=== PATIENT | female | born 1965 | race Caucasian/White ===

== ENCOUNTER 2020-08-31 11:18 | Emergency (ER) | payer MEDICAID, SELFPAY ==
[2020-08-31 11:37] VITALS: BP 123/77; PULSE 110; RESP 18; TEMP 36.5; O2SAT 100; BMI 28.5
--- NOTE | 2020-08-31 11:37 | XR_ITS ---
EXAMINATION: XR CHEST CLINICAL INFORMATION: Chest wall pain COMPARISON: Previous chest x-ray and chest CTA January 2020 TECHNIQUE: Frontal view of the chest was obtained. FINDINGS: The cardiac and mediastinal contours are normal. The lungs are clear. There is no pleural effusion or pneumothorax. There are degenerative changes of the spine and curvature of the midthoracic spine to the right. XR/XR chest 1V IMPRESSION: No evidence for acute disease in the chest.
[2020-08-31 11:41] VITALS: BP 123/77; PULSE 110; RESP 18; TEMP 36.5; O2SAT 100
--- NOTE | 2020-08-31 12:11 | ECG_ITS ---
Test Reason : SOB Blood Pressure : / mmHG Vent. Rate : 090 BPM Atrial Rate : 090 BPM P-R Int : 154 ms QRS Dur : 076 ms QT Int : 352 ms P-R-T Axes : 067 081 070 degrees QTc Int : 430 ms Normal sinus rhythm Possible Left atrial enlargement Borderline ECG When compared with ECG of 12-JAN-2020 23:38, No significant change was found Referred By: Keyana Montgomery Electronically Signed By:BISI DIAZ MD
--- NOTE | 2020-08-31 12:16 | ED_ITS ---
HPI - URI/Sore Throat General Chief Complaint: Upper Respiratory Symptoms Stated Complaint: covid +, chest wall pain Time Seen by Provider: 08/31/20 11:36 Source: patient Mode of arrival: ambulatory History of Present Illness HPI Narrative: 55-year-old female with a past medical history of asthma, GERD, HTN, COVID-19 positive, presenting to ED complaining of bilateral upper back pain x2 days. Also reports cough, mild SOB, and chest pressure. Admits back pain worse with movement, and coughing. Denies fever, chills, sick contacts, dysuria/hematuria. Admits recently travel to [place] in July. MD elicited complaint: cough Onset (ago): day(s) Related Data Allergies Allergy/AdvReac Type Severity Reaction Status Date / Time amoxicillin [AMOXICILLIN] Allergy Unknown RASH Verified 07/15/20 13:42 clarithromycin Allergy Unknown RASH Verified 07/15/20 13:42 [CLARITHROMYCIN] Review of Systems Review of Systems: Constitutional: No Weight loss, No Fever, No Chills ENT/Mouth: No Ear Pain, + Nasal Congestion, No Sinus Pain, No Hoarseness, No sore throat Cardiovascular: + Chest pressure, + SOB Respiratory: + Cough, No Sputum, No Wheezing Gastrointestinal: No Nausea, No Vomiting, No Diarrhea, No Constipation, No Abdominal pain : No dysuria, No hematuria Musculoskeletal: No joint pain, + Myalgias, No Joint Swelling Skin: No Skin Lesions, No rash Yes all other systems are reviewed and are negative PMFSH Past Medical History Attestation statement: The following information was validated with the patient. Medical History (Updated 07/15/20 @ 13:41 by Tammi Regan RN) Adrenal tumor Asthma Carpal tunnel syndrome, left GERD (gastroesophageal reflux disease) HTN (hypertension) Migraine Normal colonoscopy Surgical History (Updated 07/15/20 @ 13:41 by Tammi Regan RN) History of esophagogastroduodenoscopy (EGD) History of fundoplication History of hernia repair Status post right breast lumpectomy Tubal ligation status Social History Social History Alcohol intake: never Smoking Status: Current every day smoker Packs Per Day: 0.5 Cigarettes Per Day: 10.0 Years Smoked: 30 Use of substances other than those prescribed or required for medical reasons: No Advance Directives: No Advance Directives Information Provided: Yes Physical Exam Vital Signs: Vital Signs: Last Vital Signs Temp 97.7 F 08/31/20 11:41 Pulse 110 H 08/31/20 11:41 Resp 18 08/31/20 11:41 BP 123/77 08/31/20 11:41 Pulse Ox 100 08/31/20 11:41 Body Mass Index 28.5 Const: General: cooperative and healthy appearing Orientation/consciousness: patient oriented x3 Limitations: no limitations HENMT: Head: Yes normal to inspection Ears: hearing grossly normal bilaterally General nose exam: Normal external nose present Face and sinus: Yes normal facial exam Eyes: General: appearance normal, both eyes and all related structures EOM: EOMs intact bilaterally Neck: Neck: Yes normal visual inspection Chest: Other: +ttp bilateral posterior ribs, nonlocalized, reproducing subjective complaint Chest palpation & inspection: normal inspection of the chest and no crepitus Resp: Effort & Inspection: normal respiratory effort Auscultation: clear to auscultation bilaterally and no wheezes Cardio: Rate: tachycardic Skin: Rashes: no rashes Wounds: no wounds Neuro: General: patient oriented x3 Gait exam (Neuro): Normal gait present Extrem: General: Yes normal to inspection Course Course Course Narrative: -mild leukocytosis 12.1, D-dimer negative, labs otherwise unremarkable including troponin -CXR unremarkable MDM - URI/Sore Throat MDM Narrative Medical decision making narrative: 55-year-old female with a past medical history of asthma, GERD, HTN, COVID-19+, presenting to ED complaining of bilateral upper back pain x2 days. Also reports cough, mild SOB, and chest pressure. On exam tachycardic, NAD, lungs CTA. Concern for viral syndrom e/COVID-19 vs pneumonia vs PE vs costochondritis/MSK pain vs ACS (although lower on differential). Low concern for severe sepsis as suspected viral etiology Plan: EKG, labs, CXR, Reassess Lab Data Result diagrams: 08/31/20 12:58 08/31/20 12:58 Labs: Lab Results 08/31/20 08/31/20 08/31/20 Range/Units 12:58 12:58 12:58 WBC 12.1 H (4.8-10.8) X10*3/uL RBC 5.14 (4.20-5.50) X10*6/uL Hgb 16.0 (12.0-16.0) g/dl Hct 49.5 H (37-47) % MCV 96.3 (80-98) fL MCH 31.1 (27.0-33.0) pg MCHC 32.3 (31.0-35.0) g/dl RDW 13.7 (11.0-16.0) % Plt Count 371 (160-400) X10*3/uL MPV 8.9 L (9.4-12.3) fL Immature Gran % (Auto) 0.2 (0.0-0.4) % Neut % (Auto) 66.5 (45-73) % Lymph % (Auto) 24.0 (20-40) % [place] % (Auto) 8.1 (2-11) % Eos % (Auto) 0.7 (0-4) % Baso % (Auto) 0.5 (0-2) % Lymph # (Auto) 2.9 (1.2-4.9) X10*3/uL [place] # (Auto) 1.0 (0.1-1.2) X10*3/uL Eos # (Auto) 0.1 (0.0-0.4) X10*3/uL Baso # (Auto) 0.1 (0.0-0.2) X10*3/uL Abs Immat Gran (auto) 0.03 (0.00-0.03) X10*3/uL Absolute Neuts (auto) 8.0 (2.0-8.3) X10*3/uL Absolute Nucleated RBC 0.000 (0.0-0.012) X10*3/uL Nucleated RBC % (auto) 0.0 (0.0-0.2) /100WBC PT 11.2 (10.8-13.0) SEC INR 0.9 (0.9-1.1) APTT 37.1 (24.1-38.0) SEC D-Dimer < 200 NG/ML Sodium 140 (135-145) mmol/L Potassium 4.8 (3.3-5.1) mmol/l Chloride 101 (96-108) mmol/L Carbon Dioxide 30 H (22-29) mmol/L Anion Gap 14 (12-20) BUN 10 (9-16) mg/dL Creatinine 0.66 (0.5-1.4) mg/dL Estim Creat Clear Calc 108.9 Estimated GFR > 60 Random Glucose 79 (60-115) mg/dL Calcium 9.5 (8.4-10.2) mg/dL Troponin I High Sens (<3.5-17.0) ng/L B-Natriuretic Peptide (<100) pg/mL 08/31/20 08/31/20 Range/Units 12:58 12:58 WBC (4.8-10.8) X10*3/uL RBC (4.20-5.50) X10*6/uL Hgb (12.0-16.0) g/dl Hct (37-47) % MCV (80-98) fL MCH (27.0-33.0) pg MCHC (31.0-35.0) g/dl RDW (11.0-16.0) % Plt Count (160-400) X10*3/uL MPV (9.4-12.3) fL Immature Gran % (Auto) (0.0-0.4) % Neut % (Auto) (45-73) % Lymph % (Auto) (20-40) % [place] % (Auto) (2-11) % Eos % (Auto) (0-4) % Baso % (Auto) (0-2) % Lymph # (Auto) (1.2-4.9) X10*3/uL [place] # (Auto) (0.1-1.2) X10*3/uL Eos # (Auto) (0.0-0.4) X10*3/uL Baso # (Auto) (0.0-0.2) X10*3/uL Abs Immat Gran (auto) (0.00-0.03) X10*3/uL Absolute Neuts (auto) (2.0-8.3) X10*3/uL Absolute Nucleated RBC (0.0-0.012) X10*3/uL Nucleated RBC % (auto) (0.0-0.2) /100WBC PT (10.8-13.0) SEC INR (0.9-1.1) APTT (24.1-38.0) SEC D-Dimer NG/ML Sodium (135-145) mmol/L Potassium (3.3-5.1) mmol/l Chloride (96-108) mmol/L Carbon Dioxide (22-29) mmol/L Anion Gap (12-20) BUN (9-16) mg/dL Creatinine (0.5-1.4) mg/dL Estim Creat Clear Calc Estimated GFR Random Glucose (60-115) mg/dL Calcium (8.4-10.2) mg/dL Troponin I High Sens < 3.5 (<3.5-17.0) ng/L B-Natriuretic Peptide < 10 (<100) pg/mL
[2020-08-31 13:04] LABS: MANUAL DIFF FLAG NO
[2020-08-31 13:07] LABS: Basophils Absolute Auto 0.1 X10*3/uL (0.0-0.2); Basophils Percent Auto 0.5 % (0-2); Eosinophils Absolute Auto 0.1 X10*3/uL (0.0-0.4); Eosinophils Percent Auto 0.7 % (0-4); Hematocrit 49.5 % (37-47); Imm Gran Abs Auto 0.03 X10*3/uL (0.00-0.03); Imm Gran Pct Auto 0.2 % (0.0-0.4); Lymphocytes Absolute Auto 2.9 X10*3/uL (1.2-4.9); Mean Corpuscular HGB Conc 32.3 g/dl (31.0-35.0); Mean Corpuscular Hemoglobin 31.1 pg (27.0-33.0); Mean Corpuscular Volume 96.3 fL (80-98); Mean Platelet Volume 8.9 fL (9.4-12.3); Monocytes Percent Auto 8.1 % (2-11); Neutrophils Percent Auto 66.5 % (45-73); Platelet Count 371 X10*3/uL (160-400); Red Blood Count 5.14 X10*6/uL (4.20-5.50); Red Cell Distribution Width 13.7 % (11.0-16.0); White Blood Count 12.1 X10*3/uL (4.8-10.8)
[2020-08-31 13:12] LABS: INTERNATIONAL NORM RATIO 0.9 (0.9-1.1); Prothrombin Time 11.2 SEC (10.8-13.0)
[2020-08-31 13:15] LABS: Partial Thromboplastin Time 37.1 SEC (24.1-38.0)
[2020-08-31 13:25] LABS: D Dimer < 200 NG/ML
[2020-08-31 13:40] LABS: Anion Gap 14 (12-20); Blood Urea Nitrogen 10 mg/dL (9-16); Calcium 9.5 mg/dL (8.4-10.2); Carbon Dioxide 30 mmol/L (22-29); Chloride 101 mmol/L (96-108); Creatinine Clr Calc Pharmacy 108.9; Estimated Glomerular Filt Rate > 60; Glucose Random 79 mg/dL (60-115); Potassium 4.8 mmol/l (3.3-5.1); Sodium 140 mmol/L (135-145)
[2020-08-31 13:45] LABS: B Type Natriuretic Peptide < 10 pg/mL (<100); Troponin-I High Sensitivity < 3.5 ng/L (<3.5-17.0)
[2020-08-31 14:00] VITALS: BP 124/86; RESP 16; O2SAT 98
== END 2020-08-31 14:57 | disposition home or self-care (01) ==
PROVIDERS: Physician Assistant; Emergency Provider Emergency Medicine; PCP Internal Medicine
DX: B34.9 Viral infection, unspecified (principal); R05 Cough; M54.5 Low back pain; F17.200 Nicotine dependence, unspecified, uncomplicated; Z71.6 Tobacco abuse counseling; Z20.828 Contact with and (suspected) exposure to other viral communicable diseases
CPT/HCPCS: 36415; 71045; 80048; 83880; 84484; 85025; 85379; 85610; 85730; 93005; 99283; 99284

== ENCOUNTER 2020-10-26 08:08 | Emergency (ER) | payer MEDICAID, SELFPAY ==
[2020-10-26 08:22] VITALS: BP 148/89; PULSE 67; RESP 16; TEMP 36.2; O2SAT 100; BMI 29.3
--- NOTE | 2020-10-26 08:22 | ED_ITS ---
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 Mode of arrival: ambulatory Limitations: no limitations History of Present Illness HPI Narrative: 55 yo female on losartan 50mg compliant notes 3 days of headaches and recorded BPs of 170/74 no other complaints no numbness or weakness - no AC therapy, states she took tylenol without relief, this feels like a typical headache for her, on arrival to ED 148/89 and she states her headache is only mild at this time MD elicited complaint: headache Pertinent past history: migraines and hypertension Onset (ago): day(s) (3) Onset description: gradually Location: generalized Severity: similar to previous episodes Quality & Timing: aching, constant, progressively worsening and similar to previous headaches Exacerbating factors: none Relieving factors: nothing Context: occurred at rest Associated symptoms: none Treatments prior to arrival: acetaminophen Related Data Previous Rx's Medication Instructions Recorded albuterol sulfate 2 puff INHALATION Q4-6H PRN #6.7 g 08/31/20 benzonatate [Tessalon Perles] 100 mg PO BID PRN #10 cap 08/31/20 guaifenesin 200 mg PO Q4H PRN #10 tab 08/31/20 konrrcvnnk-ekyjgwnezrtjm-zoqw 1 tab PO Q6H PRN #20 tab 10/26/20 cyclobenzaprine 10 mg PO TID PRN #14 tab 10/26/20 Allergies Allergy/AdvReac Type Severity Reaction Status Date / Time amoxicillin [AMOXICILLIN] Allergy Unknown RASH Verified 07/15/20 13:42 clarithromycin Allergy Unknown RASH Verified 07/15/20 13:42 [CLARITHROMYCIN] Review of Systems Review of Systems: Constitutional : No Fever, No Chills, No Fatigue ENT/Mouth : No sore throat, No Rhinorrhea Eyes: No Eye Pain, No Swelling, No Redness Cardiovascular : No Chest Pain, No SOB, No Dyspnea on Exertion Respiratory : No Cough, No Sputum Gastrointestinal : No Nausea, No Vomiting, No Diarrhea, No abdominal Pain Genitourinary : No Dysuria, No Urinary Frequency, No Hematuria, Musculoskeletal : No joint pain, No Myalgias, No Joint Swelling Skin : No Skin Lesions, No rash Neuro : No Weakness, No Numbness, No Dizziness, positive Headache Psych : No Anxiety/Panic, No Depression Heme/Lymph: No Bruising, No Bleeding,No Lymphadenopathy Endocrine : No Polyuria, No Polydipsia All other systems reviewed and are negative [facility] Past Medical History Attestation statement: The following information was validated with the patient. Medical History Adrenal tumor Asthma Carpal tunnel syndrome, left GERD (gastroesophageal reflux disease) HTN (hypertension) Migraine Normal colonoscopy Surgical History History of esophagogastroduodenoscopy (EGD) History of fundoplication History of hernia repair Status post right breast lumpectomy Tubal ligation status Social History Social History Alcohol intake: never Smoking Status: Current every day smoker Packs Per Day: 0.5 Cigarettes Per Day: 10.0 Years Smoked: 30 Advance Directives: No Advance Directives Information Provided: No Physical Exam Vital Signs: Appearance: Alert. Oriented X3. No acute distress. Eyes: Pupils equal, round and reactive to light. ENT: Pharynx normal. no sinus ttp Neck: Normal inspection. Neck supple. no meningeal signs CVS: Normal heart rate and rhythm. Pulses normal. Respiratory: No respiratory distress. Breath sounds normal. Abdomen: Soft and nontender. Skin: Skin warm and dry. Normal skin color. Normal skin turgor. Extremities: No lower extremity edema. No calf ttp Neuro: Oriented X 3. No motor deficit. No sensory deficit. 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 Discharge Plan Discharge Clinical Impression: Acute tension headache Patient Disposition: Home, Self-Care Instructions: Tension Headache (ED) Additional Instructions: return to ED for any worsening symptoms or concerns Prescriptions: New cyclobenzaprine 10 mg tablet 10 mg PO TID PRN (Reason: muscle spasm) Qty: 14 RF: 0 safkhrdfkb-jywkaapawajcl-yign 50-325-40 mg tablet 1 tab PO Q6H PRN (Reason: pain) Qty: 20 RF: 0 No Action benzonatate [Tessalon Perles] 100 mg capsule 100 mg PO BID PRN (Reason: cough) Qty: 10 RF: 0 guaifenesin 200 mg tablet 200 mg PO Q4H PRN (Reason: cough) Qty: 10 RF: 0 albuterol sulfate 90 mcg/actuation HFA aerosol inhaler 2 puff inhalation Q4-6H PRN (Reason: shortness of breath or wheezing) Qty: 6.7 RF: 0 Referrals: Verito Castillo MD [Primary Care Provider] - 2 days (if not better, if blood pressure remains elevated) Stand Alone Forms: Work/School Release Print Language: Romanian
[2020-10-26] MEDS: Butalb/Acetamin/Caff 50/325/40 TABLET 1 TAB PO (09:19)
[2020-10-26] MEDS: diazePAM 5 MG TABLET PO (09:20)
[2020-10-26 09:21] VITALS: BP 153/87; PULSE 87; RESP 16; O2SAT 100
== END 2020-10-26 09:24 | disposition home or self-care (01) ==
PROVIDERS: Emergency Provider Emergency Medicine; PCP Internal Medicine
DX: G44.209 Tension-type headache, unspecified, not intractable (principal); I10 Essential (primary) hypertension; Z79.899 Other long term (current) drug therapy; F17.200 Nicotine dependence, unspecified, uncomplicated; Z71.6 Tobacco abuse counseling
CPT/HCPCS: 99284

== ENCOUNTER 2021-02-28 10:00 | Outpatient (RCR) | payer MEDICAID, SELFPAY ==
--- NOTE | 2021-01-02 11:05 | MHC.PT.EP ---
[facility] [place] [facility] [place] Office [address] Elroy Weber [address] [phone] F: [phone] F: [phone] F: [phone] F: [phone] Physical Therapy Plan of Care Date of Evaluation: 01/02/21 Date of Surgery: N/A Diagnosis: primary osteoarthritis of left knee Assessment: pt presents to physical therapy with pain, decreased range of motion, decreased strength, impaired functional mobility, impaired postural awareness, and gait deviations. pt is a good candidate for skilled PT due to age, potential remediation of impairments, typical disease/condition progression and prognosis, comorbidities, and motivation. pt would benefit from tailored strengthening and stretching exercise program, functional training, gait training, postural re-training, neuromuscular re-education, modalities as needed for pain, equipment safety demonstration. Frequency and Duration: The patient will be seen 2x/wk for 5 wks Short Term Goals: pt will be I w/ HEP to promote self-management of condition. pt will improve B quad strength by 1 MMT grade to normalize gait pattern on even ground. Shelter Goals: pt will report a statistically significant improvement in self-reported outcome measure, LEFI, to promote return to PLOF. pt will ascend/descend 5 stairs w/ reciprocal gait pattern w/ LRAD to promote ease in accessing apartment. Treatment Plan: Modalities to reduce pain, spasms and effusion. Manual therapy to restore motion and function. Therapeutic exercise to improve strength and flexibility. Neuromuscular re-education for posture and balance. Therapeutic activities to return to functional activities of daily living. Electronically signed by: Margo Pickens PT, DPT Please sign and return to therapist. Thank you for your referral.
== END 2021-03-03 08:36 | disposition other institution (70) ==
LOC: HO.PT 10:00
PROVIDERS: PCP Internal Medicine; Visit Provider Internal Medicine
DX: M17.12 Unilateral primary osteoarthritis, left knee (principal)
CPT/HCPCS: 97110; 97112; 97161; 97530

== ENCOUNTER 2021-06-04 11:19 | Emergency (ER) | payer OTHER, MEDICAID, SELFPAY ==
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
[2021-06-04 11:25] VITALS: BP 145/86; PULSE 102; RESP 18; TEMP 36.9; O2SAT 100
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
[2021-06-04] MEDS: Acetaminophen 325 MG TABLET 1000 MG PO (12:58)
[2021-06-04 13:19] LABS: MANUAL DIFF FLAG NO
[2021-06-04 13:22] LABS: Basophils Absolute Auto 0.1 X10*3/uL (0.0-0.2); Basophils Percent Auto 0.5 % (0-2); Eosinophils Absolute Auto 0.1 X10*3/uL (0.0-0.4); Eosinophils Percent Auto 1.4 % (0-4); Hematocrit 43.1 % (37-47); Hemoglobin 13.8 g/dl (12.0-16.0); Imm Gran Abs Auto 0.02 X10*3/uL (0.00-0.03); Imm Gran Pct Auto 0.2 % (0.0-0.4); Lymphocytes Absolute Auto 2.3 X10*3/uL (1.2-4.9); Lymphocytes Percent Auto 24.1 % (20-40); Mean Corpuscular Hemoglobin 31.1 pg (27.0-33.0); Mean Corpuscular Volume 97.1 fL (80-98); Mean Platelet Volume 8.7 fL (9.4-12.3); Monocytes Absolute Auto 0.7 X10*3/uL (0.1-1.2); Monocytes Percent Auto 7.9 % (2-11); Neutrophils Absolute Auto 6.2 X10*3/uL (2.0-8.3); Neutrophils Percent Auto 65.9 % (45-73); Platelet Count 335 X10*3/uL (160-400); Red Blood Count 4.44 X10*6/uL (4.20-5.50); Red Cell Distribution Width 13.3 % (11.0-16.0); White Blood Count 9.4 X10*3/uL (4.8-10.8)
[2021-06-04 13:47] LABS: Anion Gap 10 (12-20); Blood Urea Nitrogen 8 mg/dL (9-16); Calcium 9.3 mg/dL (8.4-10.2); Carbon Dioxide 28 mmol/L (22-29); Chloride 106 mmol/L (96-108); Creatinine Clr Calc Pharmacy 119.4; Estimated Glomerular Filt Rate > 60; Glucose Random 126 mg/dL (60-115); Potassium 4.4 mmol/L (3.3-5.1); Sodium 140 mmol/L (135-145)
[2021-06-04 15:12] VITALS: BP 142/88; PULSE 79; RESP 18; TEMP 37.2; O2SAT 100
[2021-06-04] MEDS: oxyCODONE HCl Immed Release 5 MG TABLET PO (15:56)
--- NOTE | 2021-06-04 16:41 | PC.NURSE ---
This Rn was told by senior director of global commercial technology solutions that patient was stating she wanted to leave and senior director of global commercial technology solutions was able to remove patients IV before she exited the ED. Provider made aware, CT scan was never performed pt elopement.
== END 2021-06-04 16:43 | disposition left against medical advice (07) ==
PROVIDERS: Physician Assistant; Emergency Provider Emergency Medicine; PCP Internal Medicine
DX: S39.91XA Unspecified injury of abdomen, initial encounter (principal); R10.9 Unspecified abdominal pain; M25.512 Pain in left shoulder; V43.52XA Car driver injured in collision with other type car in traffic accident, initial encounter; Y93.9 Activity, unspecified; Y92.410 Unspecified street and highway as the place of occurrence of the external cause; Y99.9 Unspecified external cause status; Z79.899 Other long term (current) drug therapy; F17.210 Nicotine dependence, cigarettes, uncomplicated; Z71.6 Tobacco abuse counseling
CPT/HCPCS: 36415; 73030; 80048; 85025; 99284

== ENCOUNTER → 2021-07-26 10:47 | Outpatient (BNVA) | payer MEDICAID, SELFPAY | PROVIDERS: PCP Internal Medicine; Visit Provider Nurse Practitioner Family | DX: M54.16 Radiculopathy, lumbar region (principal); M79.18 Myalgia, other site | CPT/HCPCS: 99212 ==

== ENCOUNTER 2021-08-18 15:24 | Outpatient (REF) | payer MEDICAID, SELFPAY ==
--- NOTE | ~2021-08-18 | XR_ITS ---
EXAMINATION: XR LUMBOSACRAL SPINE WITH OBLIQUES CLINICAL INFORMATION: Low back pain. COMPARISON: None TECHNIQUE: AP, both oblique, and lateral views of the lumbar spine. Lateral view of the lumbosacral junction. FINDINGS: No evidence of acute fractures or malalignment. There is moderate degenerative disease at L4-L5 and L5-S1 with disc space narrowing and bilateral facet arthropathy leading to some degree of neural foraminal encroachment and central canal narrowing. Mild degenerative changes seen in the sacroiliac joints and hips. Nonobstructive bowel gas pattern. Pelvic phleboliths. XR/XR lumbar spine 4V min IMPRESSION: No acute fractures or malalignment. Moderate degenerative changes in the lower lumbar spine which could be further assessed with an MR of the lumbar spine as clinically indicated to evaluate for nerve root impingement and disc disease.
--- NOTE | ~2021-08-18 | XR_ITS ---
EXAMINATION: XR RIBS, RIGHT CLINICAL INFORMATION: Fall. COMPARISON: Radiograph dated from 08/31/2020. TECHNIQUE: 3 views of the right ribs were obtained. FINDINGS: Normal appearance of the cardiomediastinal silhouette. Clear lungs. No pleural effusion or pneumothorax. No evidence of acutely displaced rib fractures. XR/XR ribs RT min 3V w CXR1V IMPRESSION: No acute cardiopulmonary findings. No acutely displaced rib fractures.
== END 2021-08-18 15:25 | disposition home or self-care (01) ==
LOC: HO.XRAY 15:24
PROVIDERS: Absent Provider Internal Medicine; PCP Internal Medicine; Visit Provider Emergency Medicine
DX: M54.50 Low back pain, unspecified (principal); S30.0XXA Contusion of lower back and pelvis, initial encounter; W19.XXXA Unspecified fall, initial encounter; Y93.9 Activity, unspecified; Y92.9 Unspecified place or not applicable; Y99.9 Unspecified external cause status
CPT/HCPCS: 71101; 72110

== ENCOUNTER 2021-08-30 08:55 | Outpatient (REF) | payer MEDICAID, SELFPAY ==
--- NOTE | ~2021-08-30 | MR_ITS ---
EXAMINATION: MR LUMBAR SPINE WITHOUT CONTRAST CLINICAL INFORMATION: 56-year-old with complaints of chronic low back and bilateral leg pain. Radiculopathy, lumbar region. COMPARISON: 08/18/2021 x-rays TECHNIQUE: MRI of the lumbar spine was obtained using routine sequences without contrast. FINDINGS: Coronal Alignment: Mild mid to lower lumbar levoscoliosis. Sagittal Alignment: 2 mm retrolisthesis at L2-L3 and trace retrolisthesis at L3-L4. No anterior spondylolisthesis. Lumbosacral Junction: Normal. Vertebral Bodies: Normal height. Disc Spaces and Endplates: Severe disc space height loss at L4-L5 and L5-S1 with intradiscal degenerative signal changes and Schmorl's nodes with anterior and paravertebral spondylosis at both levels asymmetric to the right at L4-L5 and asymmetric to the left at L5-S1. Yzpv-ib-cocpsojt disc space height loss asymmetric to the right at L3-L4 with disc desiccation and mild spondylosis. Vypyqlbf-df-jquoxi disc space height loss at L2-L3 with disc desiccation and moderate spondylosis. Spinal Canal: No abnormal developmental findings. Bone Marrow: There are type I and type II bone marrow signal changes seen along the endplates at L4-L5 and L5-S1 and type I degenerative marrow signal changes along the endplates at L3-L4 and L2-L3. Otherwise, bone marrow signal intensity appears within normal limits throughout the remainder of the lumbar spine. Conus Medullaris: Terminates at L1. Morphology and signal is normal. Intradural Nerve Roots: Within normal limits. L5-S1: Diffuse disc bulging is noted with mild flattening of the dural sac, with a superimposed left-sided foraminal/extraforaminal disc herniation. Dccl-uk-mdqgxeqe left-sided facet arthropathy is noted with moderate left-sided neural foraminal stenosis, with impingement on the exiting left L5 nerve root. No significant canal stenosis. Note that there is prominent epidural fat in the left subarticular zone. L4-L5: Concentric disc bulging is noted with a tiny central annular fissure. There is moderate flattening of the dural sac asymmetric to the left and there is tvax-tw-yvynvgyo facet arthropathy, right more than left. Asymmetric ligamentum flavum thickening is noted, left more than right. Moderately prominent epidural fat also noted at this level. There is severe left-sided subarticular zone stenosis, with encroachment on the traversing left L5 nerve root without significant central spinal canal stenosis. There is mild right subarticular and lateral recess stenosis, and there is mild left-sided and ookh-nw-keknijgf right-sided neural foraminal stenosis, with disc bulging abutting the exiting right L4 nerve root. L3-L4: Oqui-xz-bthycwdu diffuse disc bulging is noted with mild flattening of the dural sac. Numa-ur-pkipokre facet arthropathy noted, left more than right, without significant canal or neural foraminal stenosis. L2-L3: Mild retrolisthesis noted with disc bulging and a superimposed right subarticular extruded disc herniation with mild cephalad migration, with mild flattening of the dural sac on the right and mild narrowing of the right subarticular zone. Disc herniation slightly extends into the inferior right neural foramen without exiting neural impingement. There is minor facet arthrosis on the right with minimal right-sided foraminal narrowing without exiting neural impingement. No significant canal stenosis. L1-L2: Normal disc contour. No significant facet arthropathy, canal or neural foraminal stenosis. Paraspinal/Retroperitoneal: There is moderate generalized diffuse posterior paraspinal muscle volume loss and wrgs-oo-pnvltyku bilateral psoas muscle volume loss. MR/MR lumbar spine wo con IMPRESSION: 1. Wtfv-yd-pumeqcvv mid to lower lumbar levoscoliosis, with 2 mm of retrolisthesis at L2-L3 and trace retrolisthesis at L3-L4. 2. Multilevel DDD and spondylosis, most apparent at L4-L5 and L5-S1 with multilevel akyx-sa-dlvctfjs degrees of facet arthropathy and moderately prominent lumbar epidural fat in the lower lumbar canal. 3. Multilevel disc bulging is noted with left lateral disc herniation at L5-S1 and a right subarticular extruded disc herniation at L2-L3. There is left subarticular recess stenosis at L4-L5 with encroachment on the traversing left L5 nerve root with otherwise no significant spinal canal stenosis. 4. Moderate left-sided neural foraminal stenosis at L5-S1 with impingement on the exiting left L5 nerve root. Qdkr-de-gwqamiav neural foraminal stenosis on the right at L4-L5 with disc bulging abutting the exiting right L4 nerve root.
== END 2021-08-30 08:56 | disposition home or self-care (01) ==
LOC: HO.MRI 08:55
PROVIDERS: Visit Provider Nurse Practitioner Family
DX: M54.16 Radiculopathy, lumbar region (principal)
CPT/HCPCS: 72148

== ENCOUNTER 2022-08-21 14:10 | Emergency (ER) | payer MEDICAID, SELFPAY ==
[2022-08-21 14:27] VITALS: BP 132/80; PULSE 124
== END 2022-08-21 19:56 | disposition left against medical advice (07) ==
PROVIDERS: Emergency Provider Emergency Medicine
DX: R42 Dizziness and giddiness (principal)

== ENCOUNTER 2023-05-28 09:53 | Outpatient (REF) | payer MEDICAID, SELFPAY ==
[2023-05-28 11:20] LABS: MANUAL DIFF FLAG NO
[2023-05-28 11:30] LABS: Basophils Absolute Auto 0.1 X10*3/uL (0.0-0.2); Basophils Percent Auto 0.9 % (0-2); Eosinophils Absolute Auto 0.1 X10*3/uL (0.0-0.4); Eosinophils Percent Auto 1.3 % (0-4); Hematocrit 48.6 % (37.0-47.0); Hemoglobin 15.8 g/dl (12.0-16.0); Imm Gran Abs Auto 0.01 X10*3/uL (0.00-0.03); Imm Gran Pct Auto 0.1 % (0.0-0.4); Lymphocytes Absolute Auto 2.3 X10*3/uL (1.2-4.9); Mean Corpuscular HGB Conc 32.5 g/dl (31.0-35.0); Mean Corpuscular Hemoglobin 31.3 pg (27.0-33.0); Mean Corpuscular Volume 96.2 fL (80.0-98.0); Mean Platelet Volume 9.2 fL (9.4-12.3); Monocytes Absolute Auto 0.6 X10*3/uL (0.1-1.2); Monocytes Percent Auto 6.9 % (2-11); Neutrophils Absolute Auto 5.1 x10*3/uL (2.0-8.3); Neutrophils Percent Auto 62.8 % (45-73); Platelet Count 394 X10*3/uL (160-400); Red Blood Count 5.05 X10*6/uL (4.20-5.50); Red Cell Distribution Width 12.4 % (11.0-16.0); White Blood Count 8.2 X10*3/uL (4.8-10.8)
[2023-05-28 11:47] LABS: Cholesterol 238 mg/dL (<200); HDL Cholesterol 101 mg/dL (>40); LDL Cholesterol Calculated 119 mg/dL (<100); Triglycerides 92 mg/dL (<150)
[2023-05-28 11:51] LABS: Alanine Aminotransferase 20 U/L (0-31); Albumin Level 4.2 g/dL (3.5-5.0); Alkaline Phosphatase 67 U/L (39-117); Anion Gap 12 (12-20); Aspartate Amino Transferase 20 U/L (5-31); Bilirubin Total 0.3 mg/dL (0.0-1.0); Blood Urea Nitrogen 8 mg/dL (9-16); Calcium 9.9 mg/dL (8.4-10.2); Carbon Dioxide 29 mmol/L (22-29); Chloride 107 mmol/L (96-108); Estimated Glomerular Filt Rate > 60; Glucose Random 99 mg/dL (60-115); Iron 69 mcg/dL (30-160); Percent Iron Saturation 20 % (15-50); Sodium 144 mmol/L (135-145); Total Iron Binding Capacity 338 mcg/dL (228-428); Total Protein 6.8 g/dL (6.5-8.0); Unsaturated Iron Binding 269 ug/dL
[2023-05-28 12:02] LABS: Reflex LDLD? No
[2023-05-28 12:07] LABS: HBS Num1 0.38 mIU/mL (0-7.99); HBc Num1 0.07 S/CO (0.00-0.79); HBsAGNum1 0.36 S/CO (0.00-0.99); Hepatitis A Antibody IgM 0.19 Index (0-0.79); Hepatitis B Core Antibody Nonreactive (Nonreactive); Hepatitis B Surface Antigen Negative (Negative); Vitamin B12 319 pg/mL (200-900); ~HepC Num1 0.05 S/CO (0.00-0.79); ~Hepatitis A Antibody IgM Nonreactive (Nonreactive); ~Hepatitis B Surface Antibody NONREACTIVE (Nonreactive); ~Hepatitis C Antibody Nonreactive (Nonreactive)
[2023-05-28 12:13] LABS: Ferritin 22 ng/mL (10-250); TSH reflex Free T4 1.31 uIU/mL (0.32-4.0)
[2023-05-30 15:48] LABS: Anti Nuclear Antibody Screen NEGATIVE (NEGATIVE)
== END 2023-05-28 09:54 | disposition home or self-care (01) ==
LOC: HO.HHCL 09:53
PROVIDERS: Visit Provider Internal Medicine
DX: M79.7 Fibromyalgia (principal); E53.8 Deficiency of other specified B group vitamins; I10 Essential (primary) hypertension; D50.0 Iron deficiency anemia secondary to blood loss (chronic)
CPT/HCPCS: 36415; 80053; 80061; 82306; 82607; 82728; 83540; 84443; 85025; 86038; 86704; 86706; 86709; 86803; 87340

== ENCOUNTER → 2023-07-31 08:32 | Outpatient (BNVA) | payer MEDICAID, SELFPAY | PROVIDERS: PCP Internal Medicine; Visit Provider Surgery ==

== ENCOUNTER 2023-07-31 08:34 | Outpatient (AMB) | payer MEDICAID, SELFPAY ==
--- NOTE | 2023-07-31 08:33 | MHC.OFFVIS ---
Intake Vital Signs 07/31/23 08:37 Height 5 ft 8 in Weight 153 lb BMI 23.3 BP 128/74 Blood Pressure Location Rt brachial Position Sitting Pulse 85 Intake Visit Reasons: Sebaceous cyst upper back Intake Note: This patient presents for an assessment for sebaceous cyst of the upper back. Patient c/o; reports cyst was removed in [place] about 8 years ago and it recurred a year after, upper back. Supervisor Power Reactor Required: Yes Supervisor Power Reactor Language: Computer Support Analyst Name: Kathleen Information Interpreted: non-clinical & clinical Accompanied by: Self / Same As Patient Allergies amoxicillin [AMOXICILLIN] Allergy (Unknown, Verified 07/31/23 08:37) RASH clarithromycin [CLARITHROMYCIN] Allergy (Unknown, Verified 07/31/23 08:37) RASH Medication List - Last Reconciled 07/31/23 by Tacho Aburto MD albuterol sulfate 90 mcg/actuation 2 puffs inhalation Q4-6H PRN benzonatate (Tessalon Perles) 100 mg PO BID PRN bisacodyl (Dulcolax (bisacodyl)) 10 mg (2 x 5 mg) PO ONCE 2 days rybrhsvivu-fbpugcbzxtkxf-ktlo 50-325-40 mg 1 tab PO Q6H PRN guaifenesin 200 mg PO Q4H PRN polyethylene glycol 3350 (Miralax) 17 grams PO DAILY 1 day tizanidine 2 mg PO TID PRN HPI Sebaceous cyst upper back HPI Details 58-year-old female referred for a cyst on the back. She says that she has had this for many years. She had this excised in [place] 8 years ago but this had recurred. She says that this has been increasing in size. She denies any significant drainage or redness. She does state that this has been uncomfortable. [facility] Medical History (Updated 07/31/23 @ 08:48 by Tacho Aburto MD) Epidermal cyst of neck Normal colonoscopy Carpal tunnel syndrome, left Adrenal tumor GERD (gastroesophageal reflux disease) Migraine Asthma HTN (hypertension) Surgical History History of fundoplication History of hernia repair History of esophagogastroduodenoscopy (EGD) Status post right breast lumpectomy Tubal ligation status Family History Maternal Aunt Cancer Maternal Grandfather Stomach cancer Paternal Aunt Cancer Social History Alcohol intake: never Cigarette Packs Per Day: 0.5 Cigarettes Per Day: 10.0 Years Smoked: 30 Review of Systems Const Denies chills and Denies fever(s) Card Denies chest pain, Denies dyspnea and Denies dyspnea on exertion Resp Denies cough, Denies dyspnea and Denies dyspnea on exertion GI Denies hematochezia and Denies change in bowel habits Denies hematuria Musc Denies back pain and Denies limited range of motion Neuro Denies focal weakness and Denies convulsions Psych Denies depression and Denies mood swings Physical Exam Vital Signs: Last Vital Signs Pulse 85 07/31/23 08:37 BP 128/74 07/31/23 08:37 BMI result Body Mass Index 23.3 Const General: comfortable and no acute distress Orientation/consciousness: patient oriented x3 Neck Other: On the of the neck near the base is note of cystic induration measuring about 2.5 cm in diameter, not inflamed, well-defined Neck: Yes no lymphadenopathy Resp Auscultation: clear to auscultation bilaterally Cardio Rhythm: regular rhythm GI Palpation (GI): Soft to palpation, nontender and no guarding Neuro General: patient oriented x3 Assessment & Plan Assessment & Plan (1) Epidermal cyst of neck: Code(s): L72.0 - Epidermal cyst Plan: She has this epidermal cyst on the back of the neck towards the base as described above. She wants this excised. I explained the technique of excision under local anesthesia. I discussed with her the risks including but not limited to bleeding and infections, as well as benefits and alternatives. She understands and wants to proceed. This will be scheduled on her next visit in the office under local anesthesia. Coding Level of Care Code New Pt Level 3 (79872) Diagnoses Epidermal cyst of neck L72.0
[2023-07-31 08:37] VITALS: BP 128/74; PULSE 85; BMI 23.3
== END 2023-07-31 08:48 | disposition home or self-care (01) ==
PROVIDERS: PCP Internal Medicine; Visit Provider Surgery
DX: L72.0 Epidermal cyst (principal)
CPT/HCPCS: 99203

== ENCOUNTER 2023-08-14 09:38 | Outpatient (REF) | payer MEDICAID, SELFPAY | END 2023-08-14 09:39 | disposition home or self-care (01) | LOC: HO.LNP 09:38 | PROVIDERS: PCP Internal Medicine; Visit Provider Surgery | DX: L72.0 Epidermal cyst (principal) | CPT/HCPCS: 11423; 88304 ==

== ENCOUNTER 2023-08-14 09:38 | Outpatient (AMB) | payer MEDICAID, SELFPAY ==
--- NOTE | 2023-08-14 09:45 | A.OFFVIS_ITS ---
Intake Vital Signs 08/14/23 09:53 Height 5 ft 8 in Weight 153 lb 0.013 oz BMI 23.3 BP 116/73 Blood Pressure Location Rt brachial Position Sitting Pulse 98 Intake Visit Reasons: excision of cyst from the neck Intake Note: Patient is seen for office procedure, excision of neck cyst. Patient c/o: reports no changes. Field Talent Qualification Specialist Required: Yes Field Talent Qualification Specialist Language: Dual Rate Dealer Name: Kathleen Information Interpreted: non-clinical & clinical Accompanied by: Daughter Allergies amoxicillin [AMOXICILLIN] Allergy (Unknown, Verified 08/14/23 09:54) RASH clarithromycin [CLARITHROMYCIN] Allergy (Unknown, Verified 08/14/23 09:54) RASH HPI excision of cyst from the neck HPI Details She is here for excision of a cyst from the back of the neck. [facility] Medical History (Updated 07/31/23 @ 08:48 by Tacho Aburto MD) Epidermal cyst of neck Normal colonoscopy Carpal tunnel syndrome, left Adrenal tumor GERD (gastroesophageal reflux disease) Migraine Asthma HTN (hypertension) Surgical History History of fundoplication History of hernia repair History of esophagogastroduodenoscopy (EGD) Status post right breast lumpectomy Tubal ligation status Family History Maternal Aunt Cancer Maternal Grandfather Stomach cancer Paternal Aunt Cancer Social History Alcohol intake: never Cigarette Packs Per Day: 0.5 Cigarettes Per Day: 10.0 Years Smoked: 30 Physical Exam Vital Signs: Last Vital Signs Pulse 98 08/14/23 09:53 BP 116/73 08/14/23 09:53 BMI result Body Mass Index 23.3 Office Procedures Excision Details: She was placed in prone position. The area of the cyst on the back of the neck was prepped and draped. lidocaine 1% was used for local anesthesia. I made an incision on the skin overlying this cyst using blade 15. This carried down sharply through the full-thickness of the skin and part of the subcutaneous fat until I visualized the capsule of the cyst. I sharply dissected the capsule using Metzenbaum scissors off of the rest of the subcutaneous layer until this was delivered. This measured about 3.2 cm in diameter. I closed the incision with full-thickness nylon 3-0 interrupted sutures. Dressings were applied. The procedure was completed. She tolerated procedure well. There were no immediate complications. There was minimal blood loss. [id number] scalp/neck/hands/feet/genitalia 3.1cm-4cm Procedure code (CPT) selection complete Assessment & Plan Assessment & Plan (1) Epidermal cyst of neck: Code(s): L72.0 - Epidermal cyst Plan: She had excision of what appeared to be an epidermal inclusion cyst, about 3.2 cm in diameter. She was given wound care instructions. She will be seen in the office for removal of sutures. Coding Level of Care Code Procedure Only Diagnoses Epidermal cyst of neck L72.0 CPT Codes Scalp/Neck/Hands/Feet/Genetalia - CPT: 59899-Axpyrizj scalp/neck/hands/feet/genitalia 3.1cm-4cm ([id number])
[2023-08-14 09:53] VITALS: BP 116/73; PULSE 98; BMI 23.3
== END 2023-08-14 10:45 | disposition home or self-care (01) ==
PROVIDERS: PCP Internal Medicine; Visit Provider Surgery
DX: L72.0 Epidermal cyst (principal)
CPT/HCPCS: 11423

== ENCOUNTER 2024-04-29 20:52 | Emergency (ER) | payer MEDICAID, SELFPAY ==
[2024-04-29 20:56] VITALS: BP 144/72; PULSE 100; RESP 18; TEMP 36.8; O2SAT 98; BMI 26.6
[2024-04-29 21:36] LABS: MANUAL DIFF FLAG NO
[2024-04-29 21:42] LABS: Basophils Absolute Auto 0.1 X10*3/uL (0.0-0.2); Basophils Percent Auto 1.1 % (0-2); Eosinophils Absolute Auto 0.5 X10*3/uL (0.0-0.4); Eosinophils Percent Auto 4.1 % (0-4); Hematocrit 39.2 % (37.0-47.0); Hemoglobin 12.8 g/dl (12.0-16.0); Imm Gran Abs Auto 0.03 X10*3/uL (0.00-0.03); Imm Gran Pct Auto 0.3 % (0.0-0.4); Lymphocytes Absolute Auto 2.8 X10*3/uL (1.2-4.9); Mean Corpuscular HGB Conc 32.7 g/dl (31.0-35.0); Mean Corpuscular Hemoglobin 29.9 pg (27.0-33.0); Mean Corpuscular Volume 91.6 fL (80.0-98.0); Mean Platelet Volume 8.1 fL (9.4-12.3); Monocytes Percent Auto 8.7 % (2-11); Neutrophils Absolute Auto 6.9 x10*3/uL (2.0-8.3); Neutrophils Percent Auto 60.8 % (45-73); Platelet Count 545 X10*3/uL (160-400); Red Blood Count 4.28 X10*6/uL (4.20-5.50); Red Cell Distribution Width 13.7 % (11.0-16.0); White Blood Count 11.3 X10*3/uL (4.8-10.8)
[2024-04-29 22:04] LABS: Alanine Aminotransferase 8 U/L (0-31); Albumin Level 3.6 g/dL (3.5-5.0); Alkaline Phosphatase 103 U/L (39-117); Anion Gap 16 (12-20); Aspartate Amino Transferase 16 U/L (5-31); Bilirubin Total 0.1 mg/dL (0.0-1.0); Blood Urea Nitrogen 12 mg/dL (9-16); Carbon Dioxide 21 mmol/L (22-29); Chloride 109 mmol/L (96-108); Creatinine Clr Calc Pharmacy 107.1; Estimated Glomerular Filt Rate > 60; Glucose Random 130 mg/dL (60-115); Potassium 3.5 mmol/L (3.3-5.1); Sodium 142 mmol/L (135-145); Total Protein 6.5 g/dL (6.5-8.0)
[2024-04-29 22:12] LABS: IDNOW Serial# 58CA691E; Influenza A Negative (Negative); Influenza B2 Negative (Negative)
[2024-04-29 22:13] LABS: COVID-19 Test Negative (Negative); IDNOW Serial# 6674DD1D
[2024-04-29 23:20] VITALS: BP 141/83; PULSE 99; RESP 16; TEMP 37.1; O2SAT 100
--- NOTE | 2024-04-29 23:49 | ED_ITS ---
HPI - Headache General Chief Complaint: Upper Respiratory Symptoms Stated Complaint: headache and fever Time Seen by Provider: 04/29/24 23:48 Source: patient Mode of arrival: ambulatory Limitations: no limitations History of Present Illness ED Provider: kiko BAUGH Narrative: Patient's history of migraine headaches ran out of her Fioricet complaining of similar headache for last 2 days localized in the right side with nausea no vomiting light sensitivity no head injury no fever or chills Related Data Previous Rx's ?Medication ?Instructions ?Recorded albuterol sulfate 90 mcg/actuation 2 puff inhalation Q4-6H PRN 08/31/20 aerosol inhaler shortness of breath or wheezing #6.7 grams benzonatate 100 mg capsule 100 mg PO BID PRN cough #10 caps 08/31/20 (Yazan Kennedy) guaifenesin 200 mg tablet 200 mg PO Q4H PRN cough #10 tabs 08/31/20 cwatiqftfm-jlvcdommucdix-ssyiqtvz 1 tab PO Q6H PRN pain #20 tabs 10/26/20 50 mg-325 mg-40 mg tablet tizanidine 2 mg tablet 2 mg PO TID PRN muscle spasticity 07/26/21 #90 tabs bisacodyl 5 mg tablet,delayed 10 mg (2 x 5 mg) PO ONCE 2 days #4 05/17/22 release (Dulcolax (bisacodyl)) tabs polyethylene glycol 3350 17 17 g PO DAILY 1 day #238 grams 05/17/22 gram/dose oral powder (Miralax) ohtpyqusmt-ihuxaihhuwxrk-sleguhfj 1 tab PO Q6H PRN haeadace #20 tabs 04/30/24 50 mg-325 mg-40 mg tablet Allergies Allergy/AdvReac Type Severity Reaction Status Date / Time amoxicillin [AMOXICILLIN] Allergy Unknown RASH Verified 04/29/24 21:00 clarithromycin Allergy Unknown RASH Verified 04/29/24 21:00 [CLARITHROMYCIN] Review of Systems 2 Review of Systems: Yes all other systems are reviewed and are negative PMFSH Past Medical History Medical History Epidermal cyst of neck Normal colonoscopy Carpal tunnel syndrome, left Adrenal tumor GERD (gastroesophageal reflux disease) Migraine Asthma HTN (hypertension) Surgical History History of excision of mass (08/14/23) History of fundoplication History of hernia repair History of esophagogastroduodenoscopy (EGD) Status post right breast lumpectomy Tubal ligation status Family History Family History Maternal Aunt Cancer Maternal Grandfather Stomach cancer Paternal Aunt Cancer Social History Social History Alcohol intake: never Cigarette Packs Per Day: 0.5 Cigarettes Per Day: 10.0 Years Smoked: 30 Advance Directives: No Advance Directives Information Provided: No Do you have a plan to hurt others: No Plan Physical Exam 2 Vital Signs: Vital Signs: Last Vital Signs Temp 98.7 F 04/30/24 01:49 Pulse 99 04/30/24 01:49 Resp 16 04/30/24 01:49 BP 141/83 H 04/30/24 01:49 Pulse Ox 100 04/30/24 01:49 O2 Del Method Room Air 04/30/24 01:49 BMI result Body Mass Index 26.6 Appearance: Alert. Oriented X3. . Anxious Eyes: PERRLA, No Nystagmus ENT: Pharynx normal. Oral Mucosa moist no temporal artery tenderness nares are clear Neck: Normal inspection. Neck supple. CVS: Normal heart rate and rhythm. Pulses normal. Respiratory: No respiratory distress. Equal air entry bilateral, no wheezing/rales/rhonchi Abdomen: Soft and nontender. Bowel sounds are present, no mass palpable, no CVA tenderness Skin: Skin warm and dry. Normal skin color. Normal skin turgor. Extremities: No lower extremity edema. No calf tenderness Neuro: Oriented X 3. No motor deficit. No sensory deficit.No cerebellar signs , cranial nerves II-XII intact Medications Administered Discontinued Medications Generic Name Dose Route Start Last Admin Trade Name Freq PRN Reason Stop Dose Admin Acetaminophen/Butalbital/Caffeine 1 tab 04/29/24 23:50 04/30/24 00:00 Butalb/Acetamin/Caff 50/325/40 Tablet PO 04/29/24 23:51 1 tab ONCE ONE Administration Ondansetron HCl 4 mg 04/29/24 23:56 04/30/24 00:08 Ondansetron Odt 4 Mg Tab.Alicia TRANSLINGU 04/29/24 23:57 Not Given ONCE ONE Sumatriptan Succinate 6 mg 04/29/24 23:50 04/30/24 00:00 Sumatriptan Succinate 6 Mg/0.5 Ml Vial SUBCUT 04/29/24 23:51 6 mg ONCE ONE Administration Medical Decision Making Medical Decision Making MDM Narrative: Patient with migraine headache felt better after Fioricet will discharge patient home on Fioricet Lab Data [facility] Lab Attestation statement: I reviewed the patient's lab results. 04/29/24 21:24 04/29/24 21:24 Labs: Lab Results 04/29/24 Range/Units 21:24 WBC 11.3 H (4.8-10.8) X10*3/uL RBC 4.28 (4.20-5.50) X10*6/uL Hgb 12.8 (12.0-16.0) g/dl Hct 39.2 (37.0-47.0) % MCV 91.6 (80.0-98.0) fL MCH 29.9 (27.0-33.0) pg MCHC 32.7 (31.0-35.0) g/dl RDW 13.7 (11.0-16.0) % Plt Count 545 H D (160-400) X10*3/uL MPV 8.1 L (9.4-12.3) fL Immature Gran % (Auto) 0.3 (0.0-0.4) % Neut % (Auto) 60.8 (45-73) % Lymph % (Auto) 25.0 (20-40) % [place] % (Auto) 8.7 (2-11) % Eos % (Auto) 4.1 H (0-4) % Baso % (Auto) 1.1 (0-2) % Lymph # (Auto) 2.8 (1.2-4.9) X10*3/uL [place] # (Auto) 1.0 (0.1-1.2) X10*3/uL Eos # (Auto) 0.5 H (0.0-0.4) X10*3/uL Baso # (Auto) 0.1 (0.0-0.2) X10*3/uL Abs Immat Gran (auto) 0.03 (0.00-0.03) X10*3/uL Absolute Neuts (auto) 6.9 (2.0-8.3) x10*3/uL Absolute Nucleated RBC 0.000 (0.0-0.012) X10*3/uL Nucleated RBC % (auto) 0.0 (0.0-0.2) /100WBC Sodium 142 (135-145) mmol/L Potassium 3.5 (3.3-5.1) mmol/L Chloride 109 H (96-108) mmol/L Carbon Dioxide 21 L (22-29) mmol/L Anion Gap 16 (12-20) BUN 12 (9-16) mg/dL Creatinine 0.62 (0.5-1.4) mg/dL Estim Creat Clear Calc 107.1 Estimated GFR > 60 Random Glucose 130 H (60-115) mg/dL Calcium 9.0 D (8.4-10.2) mg/dL Total Bilirubin 0.1 (0.0-1.0) mg/dL AST 16 (5-31) U/L ALT 8 (0-31) U/L Alkaline Phosphatase 103 (39-117) U/L Total Protein 6.5 (6.5-8.0) g/dL Albumin 3.6 (3.5-5.0) g/dL COVID-19 (MICHAEL) Negative (Negative) COVID-19 Clin Com See Note Influenza Type A (TESFAYE) Negative (Negative) Influenza Type B (TESFAYE) Negative (Negative) Influenza A & B Note See Note Discharge Plan Discharge Clinical Impression: Migraine headache Patient Disposition: Home, Self-Care Instructions: Migraine Headache (ED) Additional Instructions: Medication for headache as prescribed and follow with PCP Prescriptions: New kjdjiwrycy-kaucnkvsfujuc-cosf 50-325-40 mg tablet 1 tab PO Q6H PRN (Reason: haeadace) Qty: 20 0RF No Action benzonatate [Tessalon Perles] 100 mg capsule 100 mg PO BID PRN (Reason: cough) Qty: 10 0RF guaifenesin 200 mg tablet 200 mg PO Q4H PRN (Reason: cough) Qty: 10 0RF albuterol sulfate 90 mcg/actuation HFA aerosol inhaler 2 puff inhalation Q4-6H PRN (Reason: shortness of breath or wheezing) Qty: 6.7 0RF iotlafevbv-vzwihoxhstmxi-rbfa 50-325-40 mg tablet 1 tab PO Q6H PRN (Reason: pain) Qty: 20 0RF bisacodyl [Dulcolax (bisacodyl)] 5 mg tablet,delayed release (DR/EC) 10 mg PO ONCE 2 Days Qty: 4 0RF Rx Instructions: Take 2 tablets at 12 pm daily starting 2 days before colonoscopy appointment polyethylene glycol 3350 [Miralax] 17 gram/dose powder 17 g PO DAILY 1 Days Qty: 238 0RF Rx Instructions: Mix Miralax with 64 oz(8 cups) of Crystal light. Take 2 tablets of Dulcolax qt 12 pm. Wait to have your 1st bowel movement, then begin drinking Miralax. Drink a glass of Miralax every 10-15 minutes until you are finished. You will drink at least another 4 cups of clear liquid of your choice over the next 2 hours. Please drink as many clear liquids as possible You may have clear liquids up to four hours before your procedure tizanidine 2 mg tablet 2 mg PO TID PRN (Reason: muscle spasticity) Qty: 90 0RF Rx Instructions: Discontinue cyclobenzaprine. Start with 1/2 tab as medication can be sedating. Interventions: ED Discharge Assessment Last Done: 04/30/24 01:49 Discharge Date/Time: 04/30/24 01:49 Print Language: Maldivian
[2024-04-30] MEDS: SUMAtriptan succinate 6 MG/0.5 ML VIAL SUBCUT
[2024-04-30] MEDS: Butalb/Acetamin/Caff 50/325/40 TABLET 1 TAB PO
--- NOTE | 2024-04-30 00:08 | PC.NURSE ---
PT MEDICATED PER DEC FOR 07/16 SANTIAGO. PT REPORTS DX HX OF MIGRAINES. PT REFUSED ZOFRAN AT THIS TIME STATES SHE IS NOT NAUSEOUS. PT REQUESTED ICE PACK FOR HEAD AND WARM BLANKET PROVIDED. RESTING COMFORTABLY AT THIS TIME WITH LIGHTS OFF. DAUGHTER AT BEDSIDE. CALL OCHOA WITHIN REACH.
[2024-04-30 01:49] VITALS: BP 141/83; PULSE 99; RESP 16; TEMP 37.1; O2SAT 100
== END 2024-04-30 01:49 | disposition home or self-care (01) ==
PROVIDERS: Emergency Provider Internal Medicine; PCP Internal Medicine
DX: G43.909 Migraine, unspecified, not intractable, without status migrainosus (principal); Z03.818 Encounter for observation for suspected exposure to other biological agents ruled out; J45.909 Unspecified asthma, uncomplicated
CPT/HCPCS: 80053; 85025; 87502; 87635; 96372; 99283; 99284; J3030

== ENCOUNTER 2024-05-15 11:54 | Outpatient (REF) | payer MEDICAID, SELFPAY ==
--- NOTE | ~2024-05-15 | XR_ITS ---
EXAMINATION: XR CHEST 2 VIEW CLINICAL INFORMATION: Cough, fever, left posterior back pain COMPARISON: None TECHNIQUE: PA and lateral views of the chest obtained. FINDINGS: The lungs are clear. There are no pleural effusions. The cardiomediastinal silhouette is normal. Thoracolumbar scoliosis is noted. XR/XR chest 2V IMPRESSION: No acute cardiopulmonary disease.
== END 2024-05-15 11:55 | disposition home or self-care (01) ==
LOC: HO.HHCX 11:54
PROVIDERS: Visit Provider Emergency Medicine
DX: R07.89 Other chest pain (principal); R05.1 Acute cough
CPT/HCPCS: 71046

== ENCOUNTER 2024-05-21 11:57 | Outpatient (REF) | payer MEDICAID, SELFPAY ==
[2024-05-21 12:49] LABS: D Dimer High Sensitivity < 150 NG/ML
== END 2024-05-21 11:58 | disposition home or self-care (01) ==
LOC: HO.LAB 11:57
PROVIDERS: Absent Provider Internal Medicine; PCP Internal Medicine; Visit Provider Emergency Medicine
DX: R07.89 Other chest pain (principal)
CPT/HCPCS: 36415; 85379